=== PATIENT | female | born 1945 | race Caucasian/White ===

== ENCOUNTER 2018-12-02 07:51 | Day surgery (SDC) | payer OTHER ==
[~2018-12-02] VITALS: Ht 149.9 cm; Wt 77.1 kg
[~2018-12-02 07:51] MED LIST: DEXL60CA3 PO; DICY20TA11 PO; LEVO75 PO; LIDOCAINE HCL 1% 20 ML VIAL ONE; METO50TA18 PO; PROPOFOL 10 MG/ML 20ML VIAL IV ONE; SERT50TA12 PO; SODIUM CHLORIDE 0.9% 1000ML 1,000 ML IV ONE
[2018-12-02 09:16] VITALS: BP 168/64
[2018-12-02 09:23] LABS: BASOPHILS % (AUTO) 0.7 % (0.0-5.0); EOSINOPHILS % (AUTO) 4.5 % (0.0-8.0); HEMATOCRIT 33.2 % (36-48); LYMPHOCYTES % (AUTO) 21.4 % (21.0-51.0); MEAN CORPUSCULAR HEMOGLOBIN 28.3 pg (27.0-33.0); MEAN CORPUSCULAR HGB CONC 32.8 g/dL (32.0-36.0); MEAN CORPUSCULAR VOLUME 86.3 fL (79-99); MONOCYTES % (AUTO) 8.4 % (3.0-13.0); PLATELET COUNT (AUTO) 234 K/uL (130-400); RED BLOOD CELL COUNT(AUTO) 3.85 MIL/uL (4.00-5.50); RED CELL DISTRIBUTION WIDTH 16.6 % (11.0-15.5); WHITE BLOOD COUNT (AUTO) 7.3 K/uL (4.8-10.8)
[2018-12-02 09:44] LABS: INR 1.02 (0.85-1.15); PROTHROMBIN TIME 10.7 SEC (9.6-11.6)
[2018-12-02 10:09] VITALS: BP 140/55
[2018-12-02 10:14] VITALS: BP 138/56
[2018-12-02 10:19] VITALS: BP 129/56
[2018-12-02 10:24] VITALS: BP 136/56
--- NOTE | 2018-12-02 10:33 | NUR ---
dc pt dc home via [place] , no distress noted. denies any pain or discomforts. accompanied by sister. dc instructions yany to pt's sister earlier with f/u appointment, she verbalized understanding.
== END 2018-12-02 10:33 | disposition home or self-care (01) ==
LOC: ENDO 07:51
PROVIDERS: ATTEND Internal Medicine Gastroenterology
DX: K20.9 Esophagitis, unspecified (principal); K27.9 Peptic ulcer, site unspecified, unspecified as acute or chronic, without hemorrhage or perforation; K76.0 Fatty (change of) liver, not elsewhere classified; I10 Essential (primary) hypertension; J44.9 Chronic obstructive pulmonary disease, unspecified; F41.9 Anxiety disorder, unspecified; F32.9 Major depressive disorder, single episode, unspecified; M19.90 Unspecified osteoarthritis, unspecified site; R93.3 Abnormal findings on diagnostic imaging of other parts of digestive tract; F17.200 Nicotine dependence, unspecified, uncomplicated; Z98.84 Bariatric surgery status; Z79.899 Other long term (current) drug therapy; Z90.49 Acquired absence of other specified parts of digestive tract; Z90.710 Acquired absence of both cervix and uterus; Z96.659 Presence of unspecified artificial knee joint; Z93.3 Colostomy status; Z88.0 Allergy status to penicillin; Z88.5 Allergy status to narcotic agent
CPT/HCPCS: 36415; 43237; 85025; 85610; 88305; 93005; A4606; J2704; J7030; 43232